=== PATIENT | female | born 1975 | race Caucasian/White ===

== ENCOUNTER 2016-05-16 23:01 | Observation (INO) | payer OTHER ==
[~2016-05-16] VITALS: Ht 167.6 cm; Wt 84.6 kg
[~2016-05-16 23:01] MED LIST: BACTRIM,SEPT1 TABLET PO; CARAFATE100 MG/ML PO; NORCO 5/3251 TABLET PO; PEPCID20 MG PO; PERCOCET 5/31 TABLET PO; TRAMADOL HCL50 MG PO; ZOFRAN ODT4 MG PO; ZOFRAN4 MG PO
[2016-05-16 23:31] LABS: HEMATOCRIT 34.9 % (36.0-46.0); MCH 27.5 PG (29.0-34.0); MCHC 31.8 G/DL (30.0-36.0); MCV 86.4 FL (83-99); MEAN PLAT.VOLUME 9.4 uM^3 (9.5-12.4); PLATELET COUNT 290 K/uL (156-360); RBC DIS.WIDTH-CV 15.9 % (11.8-14.6); RBC DIS.WIDTH-SD 50.1 % (39-53); RED BLOOD COUNT 4.04 M/uL (3.80-5.20); WHITE BLOOD COUNT 11.5 K/uL (4.1-10.2)
[2016-05-16 23:43] LABS: CHLORIDE 103 mEq/L (99-109); POTASSIUM 3.3 mEq/L (3.7-5.4); SODIUM 138 mEq/L (136-147)
[2016-05-16 23:44] LABS: GLUCOSE 141 mg/dL (70-99)
[2016-05-16 23:46] LABS: ANION GAP 14 MEQ/L (2-14)
[2016-05-16 23:48] LABS: GFR ESTIMATE (CALCULATED) > 59 mL/min/
[2016-05-16 23:49] LABS: UREA NITROGEN (BUN) 11 mg/dL (9-23)
[2016-05-16 23:55] LABS: TROP-I INTERPRETATION NEGATIVE; TROPONIN-I < 0.01 ng/mL (0.0-0.30)
[2016-05-17 00:29] LABS: SERUM ETHYL ALCOHOL < 10 mg/dL
[2016-05-17] MEDS ORDERED: OMEPRAZOLE20 MG PO (01:39)
[2016-05-17] MEDS ORDERED: LEXAPRO10 MG PO (01:39)
[2016-05-17] MEDS ORDERED: RANITIDINE HCL150 MG PO (01:39)
[2016-05-17 03:30] LABS: AMPHETAMINE NEGATIVE (500 ng/mL); BARBITURATES NEGATIVE (200 ng/mL); BENZODIAZEPINES NEGATIVE (150 ng/mL); COCAINE NEGATIVE (150 ng/mL); INTERNAL CONTROLS VALID? YES; METHADONE NEGATIVE (200 ng/mL); METHAMPHETAMINE NEGATIVE (500 ng/mL); OPIATES (MORPHINE) NEGATIVE (100 ng/mL); OXYCODONE NEGATIVE (100 ng/mL); PHENCYCLIDINE NEGATIVE (25 ng/mL); PROPOXYPHENE NEGATIVE (300 ng/mL); THC CANNABINOIDS NEGATIVE (50 ng/mL); TRICYCLIC ANTIDEPRESSANTS NEGATIVE (300 ng/mL)
[2016-05-17 04:13] VITALS: BP 129/60
[2016-05-17 07:50] VITALS: BP 117/64
[2016-05-17] MEDS ORDERED: PREDNISONE10 MG PO (11:07)
== END 2016-05-17 11:37 | disposition home or self-care (01) ==
LOC: EME 23:01 → EDOF 05-17 03:03 → 5WEST 05-17 04:00
PROVIDERS: Emergency Medicine
DX: R06.00 Dyspnea, unspecified (principal); R11.2 Nausea with vomiting, unspecified; R22.0 Localized swelling, mass and lump, head; F41.9 Anxiety disorder, unspecified; F32.9 Major depressive disorder, single episode, unspecified; K21.9 Gastro-esophageal reflux disease without esophagitis; F17.200 Nicotine dependence, unspecified, uncomplicated
CPT/HCPCS: 71275; 80048; 83880; 84484; 85027; 93005; 94640; 94640 76; 99202; 99281; 99285; G0378; G0480; J0171; J1200; J1650; J2060; J2405; J7030; J7512

== ENCOUNTER 2016-08-26 09:15 | Day surgery (SDC) | payer OTHER ==
[~2016-08-26] VITALS: Ht 167.6 cm; Wt 77.2 kg
[~2016-08-26 09:15] MED LIST changes: +LEXAPRO10 MG PO; +LEXAPRO20 MG PO; +OMEPRAZOLE20 MG PO; +PREDNISONE10 MG PO; +PRILOSEC20 MG PO; +PROVERA,CYCRIN10 MG PO; +RANITIDINE HCL150 MG PO; +ULTRAM50 MG PO
[2016-08-26 10:02] VITALS: BP 142/84
[2016-08-26 12:43] VITALS: BP 145/83
[2016-08-26 13:04] VITALS: BP 148/80
== END 2016-08-26 13:05 | disposition home or self-care (01) ==
LOC: SDC 09:15
PROC: 0U5B8ZZ Destruction of Endometrium, Via Natural or Artificial Opening Endoscopic (ICD-10-PCS; principal; 2016-08-26)
DX: N92.0 Excessive and frequent menstruation with regular cycle (principal); F41.8 Other specified anxiety disorders; K21.9 Gastro-esophageal reflux disease without esophagitis; F17.210 Nicotine dependence, cigarettes, uncomplicated
CPT/HCPCS: 88305; J0330; J1100; J1885; J2250; J2405; J3010